=== PATIENT | male | born 1985 | race Two or more races ===

== ENCOUNTER 2017-12-11 16:09 | Emergency (ER) | payer SELFPAY ==
[~2017-12-11] VITALS: Ht 165.1 cm; Wt 83.9 kg
[2017-12-11 16:12] VITALS: BP 161/95
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
[2017-12-11] MEDS ORDERED: Methocarbamol 500mg tab ORAL ONE (16:45)
[2017-12-11] MEDS ORDERED: TYLENOL EXTRA500 MG ORAL (17:27)
[2017-12-11] MEDS ORDERED: LIDOCAINE700 M1 TP (17:27)
[2017-12-11] MEDS ORDERED: ROBAXIN500 MG PO (17:27)
[2017-12-11 17:33] VITALS: BP 128/81
== END 2017-12-11 17:33 | disposition home or self-care (01) ==
LOC: EMR 16:49
DX: M54.5 Low back pain (principal); M25.519 Pain in unspecified shoulder; V49.50XA Passenger injured in collision with unspecified motor vehicles in traffic accident, initial encounter; Y92.410 Unspecified street and highway as the place of occurrence of the external cause; Z88.5 Allergy status to narcotic agent
CPT/HCPCS: 99284